=== PATIENT | female | born 1940 | race Caucasian/White ===

== ENCOUNTER 2022-11-09 17:16 | Emergency (ER) | payer SELFPAY | END 2022-11-09 19:29 | disposition home or self-care (01) | LOC: MW.ED 17:16 | DX: G89.29 Other chronic pain (principal); E03.9 Hypothyroidism, unspecified; E11.9 Type 2 diabetes mellitus without complications; Z79.899 Other long term (current) drug therapy | CPT/HCPCS: 99283 ==